=== PATIENT | female | born 1935 | race Caucasian/White ===

== ENCOUNTER 2016-07-17 15:14 | Outpatient (CLI) | payer MEDICARE, OTHER ==
[2016-01-08 11:43] VITALS: BP 130/77
[2016-07-17 15:38] LABS: BASOPHILS % 0.2 (0.0-1.5); EOSINOPHILS % 1.3 % (0.0-6.8); LYMPHOCYTES # 2.7 # k/uL (0.6-4.0); MEAN CORPUSCULAR HEMOGLOBIN 30.9 pg (28.0-34.0); MONOCYTES # 0.6 # k/uL (0.0-0.9); MONOCYTES % 5.3 % (0.0-11.0)
[2016-07-17 16:02] LABS: eGFR (African) > 60; eGFR (Non-African) > 60
--- NOTE | 2016-07-17 16:13 | Diagnostic Imaging Report ---
ISAEL GONZALEZ [facility] [address] [facility] [address] [address] Report Submission Date: Jul 17, 2016 4:11:12 PM ATHLETIC COORDINATOR Patient Study Name: LISETH BAUMANN Date: Jul 17, 2016 3:41:44 PM ATHLETIC COORDINATOR Modality Type: CR Gender: F Description: ABDOMEN : 39 Institution: [facility] Physician: ISAEL GNOZALEZ Abdomen - one-view Clinical history: Nausea, vomiting and diarrhea. Anorexia. Abdominal pain. Findings: Examination of the abdomen in single AP view demonstrates gas in the colon and some nondistended small bowel loops. There is no evidence of obstruction. The visualized visceral silhouettes are within normal limits. The lung bases are clear. Degenerative changes are evident in the lumbar vertebrae and hips. Impression: 1. Degenerative changes in the lumbar vertebrae and hips. 2. Normal bowel gas pattern. Electronically signed on Jul 17, 2016 4:11:12 PM ATHLETIC COORDINATOR by: Asif WHELAN
== END 2016-07-17 15:19 | disposition home or self-care (01) ==
LOC: LAB 15:14
PROVIDERS: ATTEND Family Medicine
DX: R19.7 Diarrhea, unspecified (principal); R11.2 Nausea with vomiting, unspecified
CPT/HCPCS: 36415; 74000; 80053; 83036; 85025; 87045; 87046; 87177; 87209; 87427

== ENCOUNTER 2016-07-29 12:07 | Emergency (ER) | payer MEDICARE, OTHER ==
[2016-07-29] MEDS ORDERED: SIMETHICONE 80 MG TAB.CHEW PO ONE (12:36)
--- NOTE | 2016-07-29 12:40 | ED Physician Documentation ---
Abdominal Pain - HISTORIAN Historian: patient - HPI Stated Complaint: vomiting Chief Complaint: General Adult Additonal Information: 5-6x/day fpr 5 weeks. Unusually large brown fluid so called EMS. Says she does not have nausea, but noticersher abdoment is especially tight and full of air. Then she feels pressure and forceful emesis. Doesn't know if she swallows air. - PAST HX Allergies/Adverse Reactions: Allergies Allergy/AdvReac Type Severity Reaction Status Date / Time No Known Allergies Allergy Verified 07/29/16 12:35 - VITAL SIGNS Vital Signs: Vital Signs Temp Pulse Resp BP Pulse Ox 130/77 01/08/16 11:42 ED Results Lab/Radiology - Orders Orders: ED Orders Category Date Time Status Place Saline Lock/IV Now Care 07/29/16 12:35 Ordered AMYLASE Routine Lab 07/29/16 Ordered CBC/PLATELET/DIFF Routine Lab 07/29/16 Ordered CMP Routine Lab 07/29/16 Ordered URINALYSIS Routine Lab 07/29/16 Ordered Simethicone [Gas-X] Med 07/29/16 12:36 Once 80 mg PO 1T ONE Abdominal Pain Physical Exam - Physical Exam Vital Signs: Vital Signs Temp Pulse Resp BP Pulse Ox 130/77 01/08/16 11:42
--- NOTE | 2016-07-29 12:44 | ED Physician Documentation ---
General Adult - HISTORIAN Historian: patient, other (old records) - HPI Stated Complaint: vomiting x 5 weeks Chief Complaint: General Adult Additional Information: 5-6x/day fpr 5 weeks. Unusually large emesis of brown fluid today so called EMS. Says she does not have nausea. Rather she noticers her abdomen is especially tight and full of air. Then she feels pressure and has forceful emesis. Doesn't know if she swallows air. - ROS CONST: no problems - PAST HX Past History: other (NIDDM, chronic cystitis) Allergies/Adverse Reactions: Allergies Allergy/AdvReac Type Severity Reaction Status Date / Time No Known Allergies Allergy Verified 07/29/16 12:35 - SOCIAL HX Smoking History: cigarettes - FAMILY HX Family History: Yes (heart and kidney problems) - VITAL SIGNS Vital Signs: Vital Signs Temp Pulse Resp BP Pulse Ox 130/77 01/08/16 11:42 - REVIEWED ASSESSMENTS Nursing Assessment Reviewed: Yes Vitals Reviewed: Yes Progress - Progress Progress: HISTORY: Vomiting for 5 weeks with diarrhea and bloating FINDINGS: Transverse abdomen and pelvis sections are obtained without contrast. The liver dome is inadvertently excluded. A small sliding hiatal hernia, right subphrenic ascites, small liver dome cyst, cholelithiasis, calcified splenic granulomas, atherosclerotic disease, and advanced multilevel lumbar spondylosis are observed. The kidneys, adrenals, and pancreas are unremarkable. Diffuse small bowel and right colonic distention is observed without mural thickening. Cecal diameter is 8.3 cm. Mild pericecal edema is observed. The appendix is fluid filled and mildly distended with a diameter of 9 mm. However , there is no periappendiceal inflammation. A sharp transition point is observed in the hepatic flexure suggesting a stricture or neoplasm. The transverse, descending colon and sigmoid colon are normal in caliber. A small umbilical hernia contains omentum. Pelvic sections reveal a few sigmoid diverticula, hysterectomy, decompressed urinary bladder, and minimal free fluid. IMPRESSION: Right colonic obstruction at the level of the hepatic flexure. Differential includes colon cancer and stricture. There is mild cecal distention, pericecal edema, and distended, fluid-filled appendix without periappendiceal inflammation. The appendiceal distention may be related to cecal distention rather than appendicitis. Recommend colonoscopy. Hiatal hernia, minimal ascites, cholelithiasis, atherosclerosis, lumbar spondylosis, small umbilical hernia, sigmoid diverticulosis, and hysterectomy. Electronically signed on Jul 29, 2016 1:34:45 PM MIXER TENDER by: Tonio Davis ED Results Lab/Radiology - Orders Orders: ED Orders Category Date Time Status Place Saline Lock/IV Now Care 07/29/16 12:35 Active AMYLASE Routine Lab 07/29/16 Ordered CBC/PLATELET/DIFF Routine Lab 07/29/16 Ordered CMP Routine Lab 07/29/16 Ordered URINALYSIS Routine Lab 07/29/16 Ordered Simethicone [Gas-X] Med 07/29/16 12:36 Discontinued 80 mg PO 1T ONE General Adult Physical Exam - PHYSICAL EXAM GENERAL APPEARANCE: mild distress EENT: eye inspection normal, ENT inspection normal, pharynx normal NECK: normal inspection, supple RESPIRATORY: no resp distress, chest non-tender, breath sounds normal CVS: reg rate & rhythm, heart sounds normal ABDOMEN: soft, no organomegaly, normal bowel sounds, non-tender RECTAL: deferred BACK: normal inspection, no CVA tenderness SKIN: warm/dry, normal color EXTREMITIES: non-tender, no evidence of injury NEURO: CN's nml as tested, motor nml, sensation nml Discharge Clincal Impression: Colon obstruction Condition: Fair Disposition: 02 XFER SHT-TRM HOSP Decision to Admit: NO Decision Time: 14:16
[2016-07-29 13:06] LABS: MEAN CORPUSCULAR HEMOGLOBIN 30.3 pg (28.0-34.0)
[2016-07-29 13:16] LABS: eGFR (African) > 60; eGFR (Non-African) > 60
[2016-07-29 13:18] LABS: MONOCYTES % 4 % (0-11); SEGMENTED NEUTROPHILS % 86 % (39-79)
[2016-07-29] MEDS ORDERED: ONDANSETRON HCL/PF 4 MG/ 2ML VIAL ONE (13:56)
[2016-07-29] MEDS ORDERED: ONDANSETRON HCL/PF 4 MG/ 2ML VIAL IVP ONE (13:56)
[2016-07-29] MEDS ORDERED: PROMETHAZINE HCL 25 MG in 0.9 % SODIUM CHLORIDE 50 ML IV ONE (14:15)
[2016-07-29] MEDS ORDERED: 0.9 % SODIUM CHLORIDE 250 ML IV ONE (14:17)
[2016-07-29] MEDS ORDERED: PROMETHAZINE HCL 25 MG/ML VIAL ONE (14:17)
[2016-07-29 14:48] LABS: APPEARANCE,URINE Clear (CLEAR); COLOR,URINE Yellow (YELLOW); OCCULT BLOOD,URINE Trace-intact (NEGATIVE); PH URINE 5.5 (5.0 - 8.0)
[2016-07-29] MEDS ORDERED: 0.9 % SODIUM CHLORIDE 1,000 ML IV ONE (14:51)
[2016-07-29] MEDS ORDERED: 0.9 % SODIUM CHLORIDE 1,000 ML IV SCH (15:00)
[2016-07-29 15:03] LABS: AMORPHOUS SEDIMENT,UR FEW (NEGATIVE)
--- NOTE | 2016-07-29 15:20 | Diagnostic Imaging Report ---
[facility] [address] [facility] [address] [place], [place]. [address] Report Submission Date: Jul 29, 2016 1:34:45 PM GROCERY PACKER Patient Study Name: LISETH BAUMANN Date: Jul 29, 2016 1:12:16 PM GROCERY PACKER Modality Type: CT\SR Gender: F Description: CT ABD & PELVIS W/O CO : 39 Institution: [facility] Physician ZHENG WILDE - ER Computed tomography of the abdomen and pelvis without contrast HISTORY: Vomiting for 5 weeks with diarrhea and bloating FINDINGS: Transverse abdomen and pelvis sections are obtained without contrast. The liver dome is inadvertently excluded. A small sliding hiatal hernia, right subphrenic ascites, small liver dome cyst, cholelithiasis, calcified splenic granulomas, atherosclerotic disease, and advanced multilevel lumbar spondylosis are observed. The kidneys, adrenals, and pancreas are unremarkable. Diffuse small bowel and right colonic distention is observed without mural thickening. Cecal diameter is 8.3 cm. Mild pericecal edema is observed. The appendix is fluid filled and mildly distended with a diameter of 9 mm. However , there is no periappendiceal inflammation. A sharp transition point is observed in the hepatic flexure suggesting a stricture or neoplasm. The transverse, descending colon and sigmoid colon are normal in caliber. A small umbilical hernia contains omentum. Pelvic sections reveal a few sigmoid diverticula, hysterectomy, decompressed urinary bladder, and minimal free fluid. IMPRESSION: Right colonic obstruction at the level of the hepatic flexure. Differential includes colon cancer and stricture. There is mild cecal distention, pericecal edema, and distended, fluid-filled appendix without periappendiceal inflammation. The appendiceal distention may be related to cecal distention rather than appendicitis. Recommend colonoscopy. Hiatal hernia, minimal ascites, cholelithiasis, atherosclerosis, lumbar spondylosis, small umbilical hernia, sigmoid diverticulosis, and hysterectomy. Electronically signed on Jul 29, 2016 1:34:45 PM GROCERY PACKER by: Tonio WHELAN
[2016-07-29 15:25] VITALS: BP 134/78
== END 2016-07-29 15:00 | disposition short-term general hospital (02) ==
LOC: ED 12:07
DX: K56.60 Unspecified intestinal obstruction (principal)
CPT/HCPCS: 51701; 74176; 80053; 81002; 82150; 85025; J2405; J2550; J7030; J7050; 96361; 96374; 96375; 96376; 99284; S1016

== ENCOUNTER 2016-11-04 07:25 | Emergency (ER) | payer MEDICARE, OTHER ==
[2016-11-04 08:33] LABS: BASOPHILS % 0.3 (0.0-1.5); EOSINOPHILS % 1.1 % (0.0-6.8); MEAN CORPUSCULAR HEMOGLOBIN 31.9 pg (28.0-34.0); MEAN CORPUSCULAR VOLUME 95.2 fl (80.0-100.0); MONOCYTES % 5.2 % (0.0-11.0); NEUTROPHILS # 7.8 # k/uL (1.4-7.7)
[2016-11-04 08:38] LABS: eGFR (African) > 60; eGFR (Non-African) > 60
[2016-11-04] MEDS ORDERED: POTASSIUM CHLORIDE 40 MEQ/NS 1,000 ML IV SCH (09:00)
[2016-11-04] MEDS ORDERED: POTASSIUM CHLORIDE 40 MEQ/NS 1,000 ML IV ONE (09:47)
--- NOTE | 2016-11-04 10:37 | ED Physician Documentation ---
Upper Extremity Problem - HISTORIAN Historian: patient, child - HPI Stated Complaint: Left hand swelling Chief Complaint: Upper Extremity Problem Additional Information: states she awoke this am with left wrist/hand swelling, and pain. daughter is here adding history. Patient with recent colon surgery due to CA, now on chemo. Lives alone. Patient thinks she may have hurt her wrist but doesn't know, doesnt deny trauma. Wrist is swollenb and painful passive ROM. More concerning is her ability to take care of herself at home. She is currently on new chemotherapy meds, and daughter thinks she messes up her medicines. tHEY WANT HER RETURNED TO [place]. wHEN ASKED, PATIENT SAYS "i CAN'T TAKE CARE OF MY SELF AT HOME." dR Zelaya IS HER DR. i WILL NOTIFY HIM. Location: L wrist, L hand Onset: minutes Timing: still present Duration: constant Recent Injury: No Where: home Severity: mild Associated Symptoms: denies: fever, chills, shortness of breath, difficulty breathing Exacerbated By: change in position Relieved By: nothing Quality: pain, swelling, tenderness. denies: numbness, tingling Further Comments: no - ROS CONST: recent illness EYES/ENT: none CVS/RESP: cough GI/: none MS/SKIN/LYMPH: calf pain NEURO/PSYCH: headache, fainting, dizziness - PAST HX Past History: diabetes Type 2 Other History: cancer chemo/rad tx Immunizations: UTD Allergies/Adverse Reactions: Allergies Allergy/AdvReac Type Severity Reaction Status Date / Time No Known Allergies Allergy Verified 11/04/16 07:47 Home Medications: Ambulatory Orders Medication Instructions Recorded Aspirin EC [Ecotrin] 81 mg PO DAILY 11/04/16 Capecitabine [Xeloda] 1,500 mg PO PM 11/04/16 Capecitabine [Xeloda] 2,000 mg PO AM 11/04/16 Potassium Chloride [Klor-Con 10] 10 meq PO DAILY 11/04/16 gliPIZIDE [Glucotrol] 5 mg PO 0730 11/04/16 - SOCIAL HX Smoking History: cigarettes Alcohol Use: none Drug Use: none - FAMILY HX Family History: none - VITAL SIGNS Vital Signs: Vital Signs Temp Pulse Resp BP Pulse Ox 98.1 F 89 16 156/74 95 11/04/16 07:48 11/04/16 07:48 11/04/16 07:48 11/04/16 07:48 11/04/16 07:48 - REVIEWED ASSESSMENTS Nursing Assessment Reviewed: Yes Vitals Reviewed: Yes Progress - Results/Orders Results/Orders: SPOKE WITH dR Zelaya, HE WILL START PROCESS FOR GETTING nh ADMIT. oRDERS RECIEVED. d dimer elevated will check for DVT and PE Potassium low at 2.6 - Progress Progress: spoke with Dr Zelaya. He is ok with discharge and [facility] notification , they will come pick her up. ED Results Lab/Radiology - Lab Results Lab Results: Lab Results 11/04/16 11/04/16 11/04/16 08:15 08:15 08:15 WBC 9.90 K/ul K/ul (4.00-12.00) RBC 3.65 M/ul L M/ul (3.90-5.20) Hgb 11.6 g/dL L g/dL (12.0-16.0) Hct 34.8 % % (34.5-46.5) MCV 95.2 fl fl (80.0-100.0) MCH 31.9 pg pg (28.0-34.0) MCHC 33.5 g/dL g/dL (30.0-36.0) RDW 17.0 % H % (11.3-14.3) Plt Count 244 K/mm3 K/mm3 (130-400) Neut % (Auto) 78.8 % % (39.0-79.0) Lymph % (Auto) 13.5 % L % (16.0-50.0) [place] % (Auto) 5.2 % % (0.0-11.0) Eos % (Auto) 1.1 % % (0.0-6.8) Baso % (Auto) 0.3 (0.0-1.5) Neut # 7.8 # k/uL H # k/uL (1.4-7.7) Lymph # 1.3 # k/uL # k/uL (0.6-4.0) [place] # 0.5 # k/uL # k/uL (0.0-0.9) Eos # 0.1 # k/uL # k/uL (0.0-0.6) Baso # 0.0 # k/uL # k/uL (0.0-0.5) Reactive Lymphs % 1.1 % % (0.0-5.0) Reactive Lymphs # 0.1 # k/uL # k/uL (0.0-0.8) D-Dimer 3282 ng/mL H ng/mL (6.0-682) Sodium 142 mmol/L mmol/L (136-145) Potassium 2.6 mmol/L L mmol/L (3.5-5.0) Chloride 105 mmol/L mmol/L (98-110) Carbon Dioxide 31 mmol/L mmol/L (20-32) BUN 10 mg/dL mg/dL (10-26) Creatinine 0.3 mg/dL L mg/dL (0.4-1.5) Estimated Creat Clear 179 Est GFR ( Amer) > 60 (60 - ) Est GFR (Non-Af Amer) > 60 (60 - ) Glucose 149 mg/dL H mg/dL (70-99) Calcium 9.5 mg/dL mg/dL (8.5-10.5) Total Bilirubin 0.8 mg/dL mg/dL (0.2-1.2) AST 15 U/L U/L (0-41) ALT 12 U/L U/L (0-45) Alkaline Phosphatase 76 U/L U/L (46-116) Total Protein 7.1 g/dL g/dL (6.0-8.5) Albumin 4.1 g/dL g/dL (3.0-5.5) - Orders Orders: ED Orders Category Date Time Status CT CHEST W/ CONTRAST Stat Exams 11/04/16 08:57 Ordered US EXTREMITY VEINS UNILAT [US] Stat Exams 11/04/16 08:55 Ordered WRIST 3 VIEWS OR MORE [RAD] Stat Exams 11/04/16 07:57 Ordered CBC/PLATELET/DIFF Routine Lab 11/04/16 08:15 Completed CMP Routine Lab 11/04/16 08:15 Completed D DIMER Stat Lab 11/04/16 08:15 Completed Potassium Chloride 40 Meq/Ns [Potassium 40 Meq/Ns 1000 Med 11/04/16 09:00 Ordered ml] 1,000 ml IV Q8H Upper Extremity Problem - EXAM General Appearance: no acute distress, alert Skin: warm/dry, normal color Shoulder Exam: normal inspection Elbow/Forearm Exam: normal inspection Wrist Exam: soft tissue tenderness, swelling Hand Exam: soft tissue tenderness, swelling Neuro/Tendon: normal sensation EENT: ENT inspection normal CVS: reg rate & rhythm Vascular: no vascular compromise Peripheral: sensation nml, motor nml Central: oriented X3, cognition normal Respiratory: no resp. distress Abdomen: non-tender Discharge Clincal Impression: Hypokalemia, Edema of upper extremity, Colon adenocarcinoma Left wrist sprain Qualifiers: Encounter type: initial encounter Qualified Code(s): S63.502A - Unspecified sprain of left wrist, initial encounter Chemotherapy adverse reaction Qualifiers: Encounter type: initial encounter Qualified Code(s): T45.1X5A - Adverse effect of antineoplastic and immunosuppressive drugs, initial encounter Referrals: Silverio Zelaya MD [Primary Care Provider] - 2 Days Home Medications: Ambulatory Orders Aspirin EC [Ecotrin] 81 mg PO DAILY 11/04/16 Capecitabine [Xeloda] 1,500 mg PO PM 11/04/16 Capecitabine [Xeloda] 2,000 mg PO AM 11/04/16 Potassium Chloride [Klor-Con 10] 10 meq PO DAILY 11/04/16 gliPIZIDE [Glucotrol] 5 mg PO 0730 11/04/16 Condition: Good Disposition: 04 XFER SHELTER Decision to Admit: NO Date of Decison to Admit: 11/04/16 Decision Time: 10:36
--- NOTE | 2016-11-04 12:39 | Diagnostic Imaging Report ---
FLORY CSATRO [facility] [address] [facility] [address] [address] Report Submission Date: Nov 04, 2016 8:21:15 AM CDT Patient Study Name: LISETH BAUMANN Date: Nov 04, 2016 8:06:07 AM CDT Modality Type: CR Gender: F Description: UPPER EXTREMITY : 39 Institution: [facility] Physician: FLORY CASTRO Left wrist -three views CLINICAL HISTORY: Pain and swelling since last night. FINDINGS: Examination left wrist in palmar, lateral and oblique views demonstrates degenerative changes with narrowing of the radiocarpal, lateral intercarpal and 1st carpometacarpal joints. There is no evident fracture and no lytic or blastic lesion. IMPRESSION: Degenerative changes. No fracture. Electronically signed on Nov 04, 2016 8:21:15 AM CDT by: Asif WHELAN
--- NOTE | 2016-11-04 12:40 | Diagnostic Imaging Report ---
FLORY CASTRO [facility] [place] [facility] [address] [facility] [address] [address] Report Submission Date: Nov 04, 2016 11:24:48 AM CDT Patient Study Name: LISETH BAUMANN Date: Nov 04, 2016 10:57:10 AM CDT Modality Type: CT\SR Gender: F Description: CT CHEST W/ CONTRAST : 39 Institution: [facility] [place] [facility] Physician: FLORY CASTRO CT pulmonary angiography CLINICAL HISTORY: Elevated D-dimer. Swelling of the left wrist. Rule out pulmonary embolus. Contrast administered: 89 mL of Omnipaque. TECHNIQUE: CT angiography of the chest is performed with intravenous infusion of contrast. Sliding sagittal and coronal MIP reconstructions are performed by the technologist. FINDINGS: There are dilated air spaces throughout the lungs consistent with changes of emphysema. There is no pleural effusion or significant pleural thickening. Vascular calcification is present in the thoracic aorta with extension into the origins of the great vessels and the coronary arteries small calcified lymph nodes are seen in the mediastinum and lopez bilaterally. Vascular structures enhance normally. There is no filling defect in the pulmonary arteries or vascular cutoff to suggest the diagnosis of pulmonary embolism. Spondylitic changes are seen in the thoracic spine. IMPRESSION: No pulmonary embolus. Vascular calcification. Emphysema. Small calcified mediastinal and hilar lymph nodes. Electronically signed on Nov 04, 2016 11:24:48 AM CDT by: Asif WHELAN
--- NOTE | 2016-11-04 12:40 | Diagnostic Imaging Report ---
FLORY CASTRO [facility] [address] [facility] [address] [address] Report Submission Date: Nov 04, 2016 10:06:28 AM CDT Patient Study Name: LISETH BAUMANN Date: Nov 04, 2016 9:18:50 AM CDT Modality Type: US Gender: F Description: UNILAT LTD STDY EXT VEINS : 39 Institution: [facility] Physician: FLORY CASTRO Duplex imaging of the left upper extremity CLINICAL HISTORY: Left upper extremity swelling and pain. Rule out deep venous thrombosis. TECHNIQUE: Real-time sonography of the left upper extremity is performed in transverse and longitudinal views. Doppler interrogation and color flow imaging are additionally used. FINDINGS: There are normal Doppler waveforms from the interrogated vessels with normal respiratory fluctuation and augmentation. There is no echogenic thrombus identified within the vessel lumen. The veins compress normally where they are compressible. IMPRESSION: No evidence of deep venous thrombosis. Electronically signed on Nov 04, 2016 10:06:28 AM CDT by: Asif WHELAN
[2016-11-04 15:38] VITALS: BP 145/68
== END 2016-11-04 15:36 ==
LOC: ED 07:25
DX: S63.502A Unspecified sprain of left wrist, initial encounter (principal); T45.1X5A Adverse effect of antineoplastic and immunosuppressive drugs, initial encounter; C18.9 Malignant neoplasm of colon, unspecified; E87.6 Hypokalemia; R60.0 Localized edema; X58.XXXA Exposure to other specified factors, initial encounter; Y93.9 Activity, unspecified; Y99.9 Unspecified external cause status
CPT/HCPCS: 71260; 73110; 80053; 85025; 85379; 93971; J3480; Q9966; 96365; 99284; S1016

== ENCOUNTER 2016-11-22 07:35 | Emergency (ER) | payer MEDICARE, OTHER ==
[2016-11-22 09:01] LABS: BASOPHILS % 0.3 (0.0-1.5); MEAN CORPUSCULAR HEMOGLOBIN 32.8 pg (28.0-34.0); MEAN CORPUSCULAR VOLUME 96.3 fl (80.0-100.0); MONOCYTES % 6.6 % (0.0-11.0); NEUTROPHILS # 6.4 # k/uL (1.4-7.7)
[2016-11-22 09:13] LABS: eGFR (African) > 60; eGFR (Non-African) > 60
--- NOTE | 2016-11-22 11:21 | ED Physician Documentation ---
Dyspnea - HISTORIAN Historian: patient, child - HPI Stated Complaint: Weakness/SOB Chief Complaint: Dyspnea Additional Information: prog sob weakness past few weeks sig elevation of d-dimer and bnp red activity per nh nurse. pt tachypnea 22-24 per monitor at rest prog sob reba w/exertion Duration: continues in ED, worse Initiating Event: exercise. denies: upper respiratory illness, out of meds Severity: moderate Exacerbated By: exertion, coughing Associated Symptoms: productive cough, heart racing, dizziness, light- headedness. denies: chest pain, chest discomfort, leg pain, calf pain Further Comments: yes (pt had ca colon still getting chemo-had pet scan in august =neg) - ROS CONST: recent illness EYES/ENT: none GI/: none NEURO/PSYCH: denies: headache MS/SKIN/LYMPH: none - PAST HX Lung Disease: none, COPD, other Cardiac Disease: CAD PE Risk Factors: hypertension, cancer. denies: leg swelling, bedridden, hx of PE Surgeries/Procedures: cardiac cath, angioplasty, hysterectomy Other History: diabetes Type 2, hyperlipidemia, other (ca sigmoid colon---ca lymph nodes---htn---gerd---diverticulosis---ashd) Allergies/Adverse Reactions: Allergies Allergy/AdvReac Type Severity Reaction Status Date / Time No Known Allergies Allergy Verified 11/22/16 08:06 Home Medications: Ambulatory Orders Medication Instructions Recorded Aspirin EC [Ecotrin] 81 mg PO DAILY 11/04/16 Capecitabine [Xeloda] 1,500 mg PO PM 11/04/16 Capecitabine [Xeloda] 2,000 mg PO AM 11/04/16 Potassium Chloride [Klor-Con 10] 10 meq PO DAILY 11/04/16 gliPIZIDE [Glucotrol] 5 mg PO QDAY 11/04/16 Acetaminophen [Tylenol] 325 mg PO Q6 PRN 11/22/16 Mag Hydrox/Al Hydrox/Simeth 30 ml PO PRN PRN 11/22/16 [Mylanta] Magnesium Hydroxide [Milk of 30 ml PO QDAY PRN 11/22/16 Magnesia] Omeprazole 20 mg PO DAILY 11/22/16 - SOCIAL HX Smoking History: quit greater than 1 year Alcohol Use: none Drug Use: none - FAMILY HX Family History: no significant history - VITAL SIGNS Vital Signs: Vital Signs Temp Pulse Resp BP Pulse Ox 98.2 F 92 H 20 155/71 94 11/22/16 08:01 11/22/16 08:01 11/22/16 08:01 11/22/16 08:01 11/22/16 08:01 - REVIEWED ASSESSMENTS Nursing Assessment Reviewed: Yes Vitals Reviewed: Yes ED Results Lab/Radiology - Radiology Radiology Impressions: unable to do ct chest for pe dt veins blew w/iv injection--d-dimer today 5000 bnp elevated will tx---we conclude from clin eval that she does not have pe. ct november 05 revealed no pe and she is less sob now than reported then. Dyspnea Physical Exam - EXAM General Appearance: mild distress. No: anxious, lethargic, hyperventilating EENT: eye inspection normal Neck: nml inspection. No: lymphadenopathy, thyromegaly Respiratory: no resp. distress, speaks full sentences, decreased air movement, wheezes, rales CVS: reg. rate & rhythm, no murmur. No: frequent extrasystoles, tachycardia, bradycardia Abdomen: non-tender, no distention Skin: color nml, no rash. No: cyanosis, diaphoresis, pallor, ecchymosis Extremities: non-tender, normal range of motion, no evidence of injury, no edema , other (homans sign = neg) Neuro/Psych: oriented x3, motor nml, sensation nml, mood/affect nml Discharge Clincal Impression: CHF (congestive heart failure), hx ca colon, rn long term care nicotine abuse Referrals: Silverio Zelaya MD [Primary Care Provider] - 2 Days Home Medications: Ambulatory Orders Aspirin EC [Ecotrin] 81 mg PO DAILY 11/04/16 Capecitabine [Xeloda] 1,500 mg PO PM 11/04/16 Capecitabine [Xeloda] 2,000 mg PO AM 11/04/16 Potassium Chloride [Klor-Con 10] 10 meq PO DAILY 11/04/16 gliPIZIDE [Glucotrol] 5 mg PO QDAY 11/04/16 Acetaminophen [Tylenol] 325 mg PO Q6 PRN 11/22/16 Mag Hydrox/Al Hydrox/Simeth [Mylanta] 30 ml PO PRN PRN 11/22/16 Magnesium Hydroxide [Milk of Magnesia] 30 ml PO QDAY PRN 11/22/16 Omeprazole 20 mg PO DAILY 11/22/16 Comments: elev d-dimer may be 2nd to ca colon tho pet scan has been neg for mets. we talked w/DR ZELAYA he is in agreemernt w/our plan for this pt Condition: Fair Disposition: 04 XFER SNF Decision to Admit: NO Decision Time: 11:20
[2016-11-22 11:37] VITALS: BP 131/61
== END 2016-11-22 11:29 ==
LOC: ED 07:35
DX: I50.9 Heart failure, unspecified (principal); Z85.038 Personal history of other malignant neoplasm of large intestine; Z87.891 Personal history of nicotine dependence
CPT/HCPCS: 36415; 80053; 83880; 85025; 85379; 85610; 99284; S1016

== ENCOUNTER 2018-11-17 06:00 | Outpatient (CLI) | payer MEDICARE, OTHER ==
[2018-11-30 13:24] LABS: eGFR (Non-African) > 60
[2018-11-30 13:25] LABS: A1C 5.8 % (<5.7); BASOPHILS % 0.6 % (0.0-1.5); NEUTROPHILS # 3.4 # k/uL (1.4-7.7)
== END 2018-11-17 06:03 ==
LOC: LAB 06:00
PROVIDERS: ATTEND Family Medicine
DX: E11.9 Type 2 diabetes mellitus without complications (principal); I10 Essential (primary) hypertension; I25.10 Atherosclerotic heart disease of native coronary artery without angina pectoris
CPT/HCPCS: 80053; 83036; 85025

== ENCOUNTER 2018-12-08 06:25 | Outpatient (CLI) | payer MEDICARE, OTHER | END 2018-12-08 06:30 | LOC: LAB 06:25 | PROVIDERS: ATTEND Family Medicine | DX: I10 Essential (primary) hypertension (principal); I25.10 Atherosclerotic heart disease of native coronary artery without angina pectoris | CPT/HCPCS: 84132 ==

== ENCOUNTER 2018-12-10 07:00 | Outpatient (CLI) | payer MEDICARE, OTHER ==
[2018-12-10 08:06] LABS: eGFR (Non-African) > 60
== END 2018-12-10 07:03 ==
LOC: LAB 07:00
PROVIDERS: ATTEND Family Medicine
DX: I10 Essential (primary) hypertension (principal); I25.10 Atherosclerotic heart disease of native coronary artery without angina pectoris
CPT/HCPCS: 80048

== ENCOUNTER 2019-02-03 12:15 | Outpatient (CLI) | payer MEDICARE, OTHER ==
[2019-02-03 12:41] LABS: BASOPHILS % 0.3 % (0.0-1.5); NEUTROPHILS # 3.9 # k/uL (1.4-7.7)
[2019-02-03 12:48] LABS: APPEARANCE,URINE CLEAR (CLEAR); COLOR,URINE YELLOW (YELLOW); OCCULT BLOOD,URINE NEGATIVE (NEGATIVE); PH URINE 5.5 (5.0 - 8.0); UROBILINOGEN URINE 0.2 Eu (0.2-1.0)
[2019-02-03 13:18] LABS: eGFR (Non-African) > 60
== END 2019-02-03 12:17 ==
LOC: LAB 12:15
PROVIDERS: ATTEND Family Medicine
DX: F07.0 Personality change due to known physiological condition (principal); R32 Unspecified urinary incontinence; R39.198 Other difficulties with micturition
CPT/HCPCS: 36415; 80053; 81002; 85025; 87086

== ENCOUNTER 2019-03-04 10:20 | Outpatient (CLI) | payer MEDICARE, OTHER | END 2019-03-04 10:30 | LOC: LAB 10:20 | PROVIDERS: ATTEND Family Medicine | DX: E11.9 Type 2 diabetes mellitus without complications (principal); I10 Essential (primary) hypertension | CPT/HCPCS: 36415; 83036; P9604 ==

== ENCOUNTER 2019-04-06 12:58 | Outpatient (CLI) | payer MEDICARE, OTHER ==
[2019-04-06 13:28] LABS: eGFR (Non-African) > 60
[2019-04-06 14:10] LABS: SEGMENTED NEUTROPHILS % 62 % (39-79)
== END 2019-04-06 13:03 ==
LOC: LAB 12:58
PROVIDERS: ATTEND Family Medicine
DX: C18.9 Malignant neoplasm of colon, unspecified (principal); E11.9 Type 2 diabetes mellitus without complications; Z79.01 Long term (current) use of anticoagulants
CPT/HCPCS: 36415; 80053; 85025; P9604

== ENCOUNTER 2019-06-03 07:00 | Outpatient (CLI) | payer MEDICARE, OTHER ==
[2019-06-03 09:07] LABS: A1C 5.5 % (<5.7); BASOPHILS % 0.3 % (0.0-1.5); NEUTROPHILS # 2.8 # k/uL (1.4-7.7); eGFR (Non-African) > 60
== END 2019-06-03 07:05 ==
LOC: LAB 07:00
PROVIDERS: ATTEND Family Medicine
DX: I10 Essential (primary) hypertension (principal); I25.10 Atherosclerotic heart disease of native coronary artery without angina pectoris; E11.9 Type 2 diabetes mellitus without complications
CPT/HCPCS: 36415; 80053; 83036; 85025; P9604